=== PATIENT | female | born 1995 | race African-American/Black ===

== ENCOUNTER 2018-10-17 01:09 | Emergency (ER) | payer SELFPAY ==
[~2018-10-17] VITALS: Ht 177.8 cm; Wt 60.3 kg
[2018-10-17 01:14] VITALS: BP 110/64; PULSE 97; RESP 18; Ht 177.8 cm; Wt 60.3 kg
== END 2018-10-17 02:44 | disposition left against medical advice (07) ==
LOC: FTE 01:09
DX: Z53.21 Procedure and treatment not carried out due to patient leaving prior to being seen by health care provider (principal)